=== PATIENT | female | born 1985 | race African-American/Black ===

== ENCOUNTER 2018-01-24 19:07 | Emergency (ER) | payer MEDICAID ==
[~2018-01-24] VITALS: Ht 172.7 cm; Wt 69.4 kg
[2018-01-24 19:18] VITALS: BP_SYST 123
[2018-01-24 19:48] VITALS: BP_SYST 125
== END 2018-01-24 19:48 | disposition home or self-care (01) ==
LOC: SED 19:07
DX: Z00.00 Encounter for general adult medical examination without abnormal findings (principal); Z88.1 Allergy status to other antibiotic agents
CPT/HCPCS: 99283